=== PATIENT | male | born 1980 | race Caucasian/White ===

== ENCOUNTER 2017-01-21 10:58 | Outpatient (CLI) | payer OTHER ==
--- NOTE | 2017-01-21 13:36 | XRAY Report ---
COMPLETE CERVICAL SPINE: 01/21/2017 CLINICAL INDICATION: Neck pain. FINDINGS: AP, lateral, oblique, and odontoid views of the cervical spine demonstrate normal height a nd alignment of the vertebral bodies. The disk spaces are preserved. No osseous neural foraminal narr owing is appreciated. The prevertebral soft tissues are unremarkable. IMPRESSION: NORMAL CERVICAL SPINE. JOB #: [id number] EXT JOB #:[id number]
== END 2017-01-21 10:59 | disposition home or self-care (01) ==
LOC: DI.S 10:58
PROVIDERS: ATTEND Nurse Practitioner Family
DX: M54.2 Cervicalgia (principal)
CPT/HCPCS: 72050

== ENCOUNTER 2017-06-22 08:00 | Outpatient (CLI) | payer MEDICAID, OTHER ==
[2017-06-22 17:52] LABS: BASOPHILS % (AUTO) 0.6 %; EOSINOPHILS # (AUTO) 0.1 10^3/uL (0.0-0.7); EOSINOPHILS % (AUTO) 1.7 %; HGB - HEMOGLOBIN 16.3 g/dL (14.0-18.0); LYMPHOCYTES # (AUTO) 2.9 10^3/uL (1.5-3.5); LYMPHOCYTES % (AUTO) 47.4 %; MEAN CORPUSCULAR HGB CONC 33.9 g/dL (32.0-36.0); MEAN CORPUSCULAR VOLUME 94.5 fL (80.0-94.0); MEAN PLATELET VOLUME 8.4 fL (7.4-11.4); MONOCYTES # (AUTO) 0.7 10^3/uL (0.0-1.0); NEUTROPHILS # (AUTO) 2.4 10^3/uL (1.5-6.6); NEUTROPHILS % (AUTO) 39.3 %; PLT - PLATELET COUNT 233 10^3/uL (130-450); RED BLOOD COUNT 5.08 10^6/uL (4.70-6.10); RED CELL DISTRIBUTION WIDTH 13.3 % (12.0-15.0); WHITE BLOOD COUNT 6.2 x10^3/uL (4.8-10.8)
[2017-06-22 18:01] LABS: ALBUMIN 4.4 g/dL (3.2-5.5); ALBUMIN/GLOBULIN RATIO 1.5 (1.0-2.2); ALKALINE PHOSPHATASE 64 IU/L (42-121); ALT ALANINE AMINOTRANSFERASE 34 IU/L (10-60); AST ASPARTATE AMINOTRANSFERASE 27 IU/L (10-42); BILIRUBIN,TOTAL 0.4 mg/dL (0.2-1.0); BUN - BLOOD UREA NITROGEN 9 mg/dL (6-20); CALCIUM 8.9 mg/dL (8.5-10.3); CARBON DIOXIDE - CO2 27 mmol/L (21-32); CHLORIDE 100 mmol/L (101-111); GFR - MDRD 85 (>89); GLUCOSE 66 mg/dL (70-100); SODIUM 135 mmol/L (135-145); TOTAL PROTEIN 7.4 g/dL (6.7-8.2)
== END 2017-06-22 23:59 ==
LOC: LAB.S 08:00
PROVIDERS: ATTEND Nurse Practitioner Family
DX: F10.10 Alcohol abuse, uncomplicated (principal); F25.0 Schizoaffective disorder, bipolar type; Z79.899 Other long term (current) drug therapy; R03.0 Elevated blood-pressure reading, without diagnosis of hypertension
CPT/HCPCS: 36415; 80053; 84443; 85025

== ENCOUNTER 2017-11-16 18:40 | Emergency (ER) | payer MEDICAID ==
[2017-11-16 19:09] VITALS: BP 125/87
--- NOTE | 2017-11-16 20:09 | ED Physician Documentation ---
History of Present Illness - Stated complaint Stated Complaint: MHE - Chief complaint Chief Complaint: MHE - History obtained from History obtained from: Patient - History of Present Illness Timing: Chronic - Additonal information Additional information: Patient is a 37 year old male presenting to the emergency department for a "check up". Patient states that he he hurt his feet as a kid playing sports. patient states that he is tired of walking. Patient admitted to smoking crystal meth in triage but denied it to me. Patient is awake, alert and oriented and in no distress. Patient denies suicidal or homicidal ideation. Review of Systems Ten Systems: 10 systems reviewed and negative Constitutional: denies: Fever, Chills Musculoskeletal: reports: Extremity pain, Joint pain Neurologic: denies: Headache, Head injury, LOC Psychiatric: denies: Suicidal, Homicidal PD PAST MEDICAL HISTORY - Past Medical History Past Medical History: Yes Psych: Bipolar disorder, Schizophrenia - Past Surgical History Past Surgical History: No - Present Medications Home Medications: Ambulatory Orders Medication Instructions Recorded Confirmed No Known Home Medications 01/05/17 01/05/17 - Allergies Allergies/Adverse Reactions: Allergies Allergy/AdvReac Type Severity Reaction Status Date / Time No Known Drug Allergies Allergy Verified 11/16/17 19:09 - Social History Does the pt smoke?: No Smoking Status: Current every day smoker Does the pt drink ETOH?: Yes Does the pt have substance abuse?: Yes Substance Use and Type: Marijuana, Meth - Immunizations Immunizations are current?: No - POLST Patient has POLST: No PD ED PE NORMAL - Vitals Vital signs reviewed: Yes - General General: Alert and oriented X 3, No acute distress - HEENT HEENT: Atraumatic - Cardiac Cardiac: RRR - Respiratory Respiratory: No respiratory distress - Derm Derm: Normal color - Neuro Neuro: Alert and oriented X 3, No motor deficit, Normal speech Eye Opening: Spontaneous Results - Vitals Vitals: Vital Signs - 24 hr 11/16/17 18:57 Temperature 36.7 C Heart Rate 106 H Respiratory 16 Rate Blood Pressure 125/87 H O2 Saturation 99 Oxygen O2 Source Room air PD MEDICAL DECISION MAKING - ED course Complexity details: reviewed old records, reviewed results, re-evaluated patient, considered differential, d/w patient ED course: Patient was seen and examined at bedside. Patient was in no distress and was asking for food. Patient had no significant injuries. no imaging was indicated at this time. Patient was awake, alert and oriented and was not suicidal or homicidal. patient required no further work up and was stable for discharge with outpatient follow up. - Sepsis Event Vital Signs: Vital Signs - 24 hr 11/16/17 18:57 Temperature 36.7 C Heart Rate 106 H Respiratory 16 Rate Blood Pressure 125/87 H O2 Saturation 99 Oxygen O2 Source Room air Departure - Departure Disposition: 01 Home, Self Care Clinical Impression: Foot pain Condition: Stable Instructions: ED RICE Follow-Up: primary,care provider [Other] - As Needed Comments: You should try to elevate your feet and take motrin or tylenol as needed for pain. you should follow up with your doctor if your symptoms persist. you may return to the emergency department for new, worsening or uncontrollable symptoms.
== END 2017-11-16 20:22 | disposition home or self-care (01) ==
LOC: ED 18:40
DX: M79.673 Pain in unspecified foot (principal); F17.200 Nicotine dependence, unspecified, uncomplicated
CPT/HCPCS: 99282; 99283

== ENCOUNTER 2017-11-17 00:52 | Outpatient (CLI) | payer MEDICAID | END 2017-11-17 00:53 | disposition critical access hospital (66) | LOC: EMS 00:52 | PROVIDERS: ATTEND Surgery | DX: M54.9 Dorsalgia, unspecified (principal) | CPT/HCPCS: A0425; A0429; A0999 ==

== ENCOUNTER 2017-11-17 01:08 | Emergency (ER) | payer MEDICAID ==
[2017-11-17] MEDS ORDERED: IBUPROFEN 600 MG TABLET PO STA (01:13)
--- NOTE | 2017-11-17 01:13 | ED Physician Documentation ---
PD HPI BACK PAIN - Stated complaint Stated Complaint: LOW BACK PX - Chief complaint Chief Complaint: Back Pain - History obtained from History obtained from: Patient, EMS - History of Present Illness Timing - onset: Today Timing - details: Still present, Intermittant Location: Lower Quality: Pain Similar symptoms before: No diagnosis Recently seen: Emergency Dept - Additional information Additional information: Patient is a 37 year old male brought in by ems for back pain. patient was in the emergency department earlier after smoking either meth or pcp reporting foot pain that he had as a child. patient was discharged. This evening patient was acting odd at [facility] so police were called. patient asked police to take him down to [place] (south of the hospital, patient was [place] of the hospital and [place]). police refused then the patient proceeded to request transfer to the hospital for non traumatic back pain that has been going on for a few years. Review of Systems Ten Systems: 10 systems reviewed and negative Musculoskeletal: reports: Back pain, Extremity pain PD PAST MEDICAL HISTORY - Past Medical History Psych: Bipolar disorder, Schizophrenia - Past Surgical History Past Surgical History: No - Present Medications Home Medications: Ambulatory Orders Medication Instructions Recorded Confirmed No Known Home Medications 01/05/17 01/05/17 - Allergies Allergies/Adverse Reactions: Allergies Allergy/AdvReac Type Severity Reaction Status Date / Time No Known Drug Allergies Allergy Verified 11/17/17 01:13 - Social History Does the pt smoke?: No Smoking Status: Current every day smoker Does the pt drink ETOH?: Yes Does the pt have substance abuse?: Yes - Immunizations Immunizations are current?: No - POLST Patient has POLST: No PD ED PE NORMAL - Vitals Vital signs reviewed: Yes - General General: Alert and oriented X 3, No acute distress, Well developed/nourished - HEENT HEENT: Atraumatic - Cardiac Cardiac: RRR - Respiratory Respiratory: No respiratory distress - Derm Derm: No rash - Neuro Neuro: Alert and oriented X 3, No motor deficit Eye Opening: Spontaneous Results - Vitals Vitals: Vital Signs - 24 hr 11/17/17 01:11 Temperature 36.6 C Heart Rate 60 Respiratory 12 Rate Blood Pressure 132/93 H O2 Saturation 98 Oxygen O2 Source Room air PD MEDICAL DECISION MAKING - ED course Complexity details: reviewed old records, considered differential, d/w patient ED course: Patient was seen and examined at bedside. patient was walking normally a few hours ago while in the ER as well as at [facility]. Patient required no emergent i maging at this time. patient was treated with ibuprofen and stable for discharge with outpatient follow up. - Sepsis Event Vital Signs: Vital Signs - 24 hr 11/17/17 01:11 Temperature 36.6 C Heart Rate 60 Respiratory 12 Rate Blood Pressure 132/93 H O2 Saturation 98 Oxygen O2 Source Room air Departure - Departure Disposition: 01 Home, Self Care Clinical Impression: Low back pain Condition: Good Instructions: ED Back Care Tips Follow-Up: primary,care provider [Other] - As Needed Comments: You should take motrin or tylenol for your pain. you can also try applying ice or heat for pain control. You may return to the emergency department at any time for new, worsening or uncontrollable symptoms.
[2017-11-17 01:16] VITALS: BP 132/93
== END 2017-11-17 02:01 | disposition home or self-care (01) ==
LOC: EDUNIT# → ED 01:08
DX: M54.5 Low back pain (principal); F31.9 Bipolar disorder, unspecified; F20.9 Schizophrenia, unspecified; F17.200 Nicotine dependence, unspecified, uncomplicated
CPT/HCPCS: 99282; 99283; A9270

== ENCOUNTER 2017-11-18 13:13 | Emergency (ER) | payer MEDICAID ==
[2017-11-18 14:27] LABS: BASOPHILS % (AUTO) 0.7 %; EOSINOPHILS # (AUTO) 0.1 10^3/uL (0.0-0.7); HGB - HEMOGLOBIN 14.7 g/dL (14.0-18.0); LYMPHOCYTES # (AUTO) 2.6 10^3/uL (1.5-3.5); LYMPHOCYTES % (AUTO) 38.5 %; MEAN CORPUSCULAR HGB CONC 35.5 g/dL (32.0-36.0); MEAN PLATELET VOLUME 7.6 fL (7.4-11.4); MONOCYTES # (AUTO) 0.6 10^3/uL (0.0-1.0); MONOCYTES % (AUTO) 8.8 %; NEUTROPHILS # (AUTO) 3.4 10^3/uL (1.5-6.6); PLT - PLATELET COUNT 194 10^3/uL (130-450); RED BLOOD COUNT 4.46 10^6/uL (4.70-6.10); RED CELL DISTRIBUTION WIDTH 12.6 % (12.0-15.0); WHITE BLOOD COUNT 6.7 x10^3/uL (4.8-10.8)
[2017-11-18 14:42] LABS: ALBUMIN/GLOBULIN RATIO 1.4 (1.0-2.2); ALKALINE PHOSPHATASE 70 IU/L (42-121); ALT ALANINE AMINOTRANSFERASE 32 IU/L (10-60); AST ASPARTATE AMINOTRANSFERASE 31 IU/L (10-42); BILIRUBIN,TOTAL 0.5 mg/dL (0.2-1.0); BUN - BLOOD UREA NITROGEN 15 mg/dL (6-20); CALCIUM 8.9 mg/dL (8.5-10.3); CARBON DIOXIDE - CO2 24 mmol/L (21-32); CHLORIDE 104 mmol/L (101-111); CREATININE 0.8 mg/dL (0.6-1.2); GFR - MDRD 109 (>89); GLUCOSE 128 mg/dL (70-100); LIPASE 42 U/L (22-51); SODIUM 137 mmol/L (135-145); TOTAL PROTEIN 6.8 g/dL (6.7-8.2)
[2017-11-18] MEDS ORDERED: SODIUM CHLORIDE 0.9% 2,000 ML IV ONE (14:46)
--- NOTE | 2017-11-18 14:50 | ED Physician Documentation ---
History of Present Illness - Stated complaint Stated Complaint: HIGH BP - Chief complaint Chief Complaint: General - Additonal information Additional information: 37-year-old male presents the emergency department for evaluation. Upon enteri ng the room the patient is not making a tremendous amount of sense. The patient is babbling and reporting needing to walk. The patient is unclear as to While he is here. The patient reports excessive drug use and being homeless and walking. The history is significantly limited secondary to the patient's state. The patient does have a history of psychological issues and is unclear as to whether or not he has been taking his medications Review of Systems Unable to obtain: Confused, Intoxicated, Uncooperative Constitutional: reports: Fatigue Neurologic: reports: Confused Psychiatric: reports: Delusions PD PAST MEDICAL HISTORY - Past Medical History Cardiovascular: None Respiratory: None Neuro: None Endocrine/Autoimmune: None GI: None : None HEENT: None Psych: Bipolar disorder, Schizophrenia Musculoskeletal: Chronic back pain Derm: None - Past Surgical History Past Surgical History: No - Present Medications Home Medications: Ambulatory Orders Medication Instructions Recorded Confirmed No Known Home Medications 01/05/17 01/05/17 - Allergies Allergies/Adverse Reactions: Allergies Allergy/AdvReac Type Severity Reaction Status Date / Time No Known Drug Allergies Allergy Verified 11/17/17 01:13 - Social History Does the pt smoke?: No Smoking Status: Current every day smoker Does the pt drink ETOH?: Yes Does the pt have substance abuse?: Yes - Immunizations Immunizations are current?: No - POLST Patient has POLST: No PD ED PE NORMAL - General General: Other (37-year-old male who appears to be in a poor state of health and appears acutely confused) - HEENT HEENT: Atraumatic, PERRL, EOMI, Moist mucous membranes - Neck Neck: No bony TTP - Cardiac Cardiac: Other (Tachycardia regular rate) - Respiratory Respiratory: No respiratory distress, Clear bilaterally - Derm Derm: Normal color - Extremities Extremities: No deformity, Normal ROM s pain - Neuro Neuro: Other (The patient's alert, moving all 4 extremities and ambulates. But the patient is confused and has difficulty providing much history and is uncooperative) PD ED PE EXPANDED - Psych Psych: Withdrawn, Poor eye contact, Delusions Results - Vitals Vitals: Vital Signs - 24 hr 11/18/17 11/18/17 11/18/17 13:34 16:00 17:00 Temperature 36.5 C Heart Rate 138 H 94 87 Respiratory 20 15 14 Rate Blood Pressure 130/72 139/87 H 113/79 O2 Saturation 95 94 94 11/18/17 18:00 Temperature Heart Rate 89 Respiratory 13 Rate Blood Pressure 112/75 O2 Saturation 98 Oxygen O2 Source Room air - Labs Labs: Laboratory Tests 11/18/17 11/18/17 11/18/17 14:19 14:19 14:36 WBC 6.7 RBC 4.46 L Hgb 14.7 Hct 41.5 L MCV 93.0 MCH 33.0 H MCHC 35.5 RDW 12.6 Plt Count 194 MPV 7.6 Neut # (Auto) 3.4 Lymph # (Auto) 2.6 Mck[place]ley # (Auto) 0.6 Eos # (Auto) 0.1 Baso # (Auto) 0.0 Absolute Nucleated RBC 0.00 Nucleated RBC % 0.1 Sodium 137 Potassium 3.4 L Chloride 104 Carbon Dioxide 24 Anion Gap 9.0 BUN 15 Creatinine 0.8 Estimated GFR (MDRD) 109 Glucose 128 H Calcium 8.9 Total Bilirubin 0.5 AST 31 ALT 32 Alkaline Phosphatase 70 Total Creatine Kinase 664 H Total Protein 6.8 Albumin 4.0 Globulin 2.8 Albumin/Globulin Ratio 1.4 Lipase 42 Urine Color Urine Clarity Urine pH Ur Specific [place] Urine Protein Urine Glucose (UA) Urine Ketones Urine Occult Blood Urine Nitrite Urine Bilirubin Urine Urobilinogen Ur Leukocyte Esterase Ur Microscopic Review Last Dose Date Last Dose Time Salicylates < 6.0 Urine Opiates Screen Ur Oxycodone Screen Urine Methadone Screen Ur Propoxyphene Screen Acetaminophen < 10 L Ur Barbiturates Screen Ur Tricyclics Screen Ur Phencyclidine Scrn Ur Amphetamine Screen U Methamphetamines Scrn U Benzodiazepines Scrn [place] Urine Cocaine Screen U Cannabinoids Screen Ethyl Alcohol < 5.0 11/18/17 11/18/17 15:15 15:42 WBC RBC Hgb Hct MCV MCH MCHC RDW Plt Count MPV Neut # (Auto) Lymph # (Auto) Mck[place] # (Auto) Eos # (Auto) Baso # (Auto) Absolute Nucleated RBC Nucleated RBC % Sodium Potassium Chloride Carbon Dioxide Anion Gap BUN Creatinine Estimated GFR (MDRD) Glucose Calcium Total Bilirubin AST ALT Alkaline Phosphatase Total Creatine Kinase Total Protein Albumin Globulin Albumin/Globulin Ratio Lipase Urine Color YELLOW Urine Clarity CLEAR Urine pH 6.0 Ur Specific [place] 1.010 Urine Protein NEGATIVE Urine Glucose (UA) NEGATIVE Urine Ketones NEGATIVE Urine Occult Blood NEGATIVE Urine Nitrite NEGATIVE Urine Bilirubin NEGATIVE Urine Urobilinogen 0.2 (NORMAL) Ur Leukocyte Esterase NEGATIVE Ur Microscopic Review NOT INDICATED Last Dose Date UNKNOWN Last Dose Time UNKNOWN Salicylates Urine Opiates Screen NEGATIVE Ur Oxycodone Screen NEGATIVE Urine Methadone Screen NEGATIVE Ur Propoxyphene Screen NEGATIVE Acetaminophen Ur Barbiturates Screen NEGATIVE Ur Tricyclics Screen POSITIVE H Ur Phencyclidine Scrn NEGATIVE Ur Amphetamine Screen NEGATIVE U Methamphetamines Scrn POSITIVE H U Benzodiazepines Scrn NEGATIVE [place] < 0.05 Urine Cocaine Screen NEGATIVE U Cannabinoids Screen NEGATIVE Ethyl Alcohol PD MEDICAL DECISION MAKING - ED course ED course: After observation in the emergency department the patient had a tele-psych evaluation. After their evaluation they recommended placement into inpatient management. I discussed this with the patient and he became very agitated and enraged. The police were called and when the police arrived the patient threatened to kill the police and was making very violent threats and appeared to be a danger to staff and himself. The patient was placed in four-point restraints to help protect him and staff. The [facility] was called since the patient is not voluntary for treatment 23:00 PM The patient's care was turned over to Dr. Hightower for final disposition - Sepsis Event Vital Signs: Vital Signs - 24 hr 11/18/17 11/18/17 11/18/17 13:34 16:00 17:00 Temperature 36.5 C Heart Rate 138 H 94 87 Respiratory 20 15 14 Rate Blood Pressure 130/72 139/87 H 113/79 O2 Saturation 95 94 94 11/18/17 18:00 Temperature Heart Rate 89 Respiratory 13 Rate Blood Pressure 112/75 O2 Saturation 98 Oxygen O2 Source Room air Departure - Departure Clinical Impression: Acute psychosis, Polysubstance abuse
[2017-11-18 15:03] LABS: CK- CREATINE KINASE 664 IU/L (22-269); SALICYLATE < 6.0 mg/dL
[2017-11-18 15:11] LABS: ACETAMINOPHEN < 10 ug/mL (10-30)
--- NOTE | 2017-11-18 15:17 | CT Report ---
Reason: AMS Procedure Date: 11/18/2017 Accession Number: [id number] / [id number] Procedure: CT - Head W/O CPT Code: FULL RESULT: EXAM: CT HEAD EXAM DATE: 11/18/2017 03:06 PM. CLINICAL HISTORY: Confusion COMPARISON: None. TECHNIQUE: Multiaxial CT images were obtained from the foramen magnum to the vertex. Reformats: Sagittal and coronal. IV contrast: None. In accordance with CT protocol optimization, one or more of the following dose reduction techniques were utilized for this exam: automated exposure control, adjustment of mA and/or KV based on patient size, or use of iterative reconstructive technique. FINDINGS: Parenchyma: No intraparenchymal hemorrhage. No evidence of mass, midline shift, or CT findings of infarction. Reynolds-white differentiation is distinct. Extraaxial Spaces: Normal for age. No subdural or epidural collections identified. Ventricles: Normal in size and position. Sinuses and Orbits: Imaged paranasal sinuses, orbits, and mastoids show no significant abnormality. Bones: No evidence of fracture or calvarial defect. Other: None. IMPRESSION: No acute intracranial CT abnormality. RADIA
[2017-11-18 15:31] LABS: MUDS CUTOFF CONCENTRATIONS CUTOFF CONC BELOW:
[2017-11-18 15:47] LABS: AMPHETAMINE SCREEN,URINE NEGATIVE (NEGATIVE); BENZODIAZEPINES SCREEN, URINE NEGATIVE (NEGATIVE); COCAINE SCREEN URINE NEGATIVE (NEGATIVE); METHADONE SCREEN, URINE NEGATIVE (NEGATIVE); METHAMPHETAMINES SCREEN, URINE POSITIVE (NEGATIVE); OPIATE SCREEN, URINE NEGATIVE (NEGATIVE); OXYCODONE SCREEN, URINE NEGATIVE (NEGATIVE); PROPOXYPHENE SCREEN, URINE NEGATIVE (NEGATIVE); TRICYCLIC ANTIDEPRESSANT,URINE POSITIVE (NEGATIVE)
[2017-11-18 16:05] LABS: BILIRUBIN,URINE NEGATIVE (NEGATIVE); GLUCOSE, URINE (UA) NEGATIVE (NEGATIVE); KETONES,URINE (UA) NEGATIVE (NEGATIVE); LEUKOCYTE ESTERASE, URINE NEGATIVE (NEGATIVE); NITRITE,URINE NEGATIVE (NEGATIVE); OCCULT BLOOD,URINE NEGATIVE (NEGATIVE); PROTEIN,URINE NEGATIVE (NEGATIVE); UROBILINOGEN,URINE 0.2 (NORMAL) E.U./dL (NORMAL)
[2017-11-18 16:07] LABS: CLARITY,URINE CLEAR (CLEAR)
[2017-11-18 16:34] LABS: LITHIUM < 0.05 mmol/L
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
[2017-11-18] MEDS ORDERED: LORazepam 2 MG/ML VIAL IM STA (20:26)
[2017-11-18] MEDS ORDERED: HALOPERIDOL 5 MG/ML VIAL IM STA (20:26)
[2017-11-18] MEDS ORDERED: diphenhydrAMINE INJ 50 MG/ML VIAL IM STA (20:26)
[2017-11-19] MEDS ORDERED: OLANZapine ODT 5 MG TABLET TL STA ×2 (00:34→00:36)
[2017-11-19 03:04] VITALS: BP 133/87
--- NOTE | 2017-12-17 12:36 | ED Physician Documentation ---
ED Addendum - Addendum Addendum: 12/17/17 12:35 DISPOSITION : Transfer acute psychiatric hospital
== END 2017-11-19 03:15 ==
LOC: ED 13:13
DX: F25.0 Schizoaffective disorder, bipolar type (principal); F23 Brief psychotic disorder; F15.10 Other stimulant abuse, uncomplicated; F17.200 Nicotine dependence, unspecified, uncomplicated; Z59.0 Homelessness
CPT/HCPCS: 36415; 70450; 80053; 80178; 80306; 80307; 80320; 80329; 81003; 82550; 83690; 85025; 93005; 96360; 96361; 99284; A9270; G0426; Q3014; 81001; 99285

== ENCOUNTER 2018-01-11 14:31 | Emergency (ER) | payer SELFPAY ==
[2018-01-11 14:44] VITALS: BP 136/107
--- NOTE | 2018-01-11 15:44 | ED Physician Documentation ---
History of Present Illness - Stated complaint Stated Complaint: MED REFILL - Chief complaint Chief Complaint: General - Additonal information Additional information: hx from pt 37 male needs his zyprexa refilled - he left the bottle in his trailer he has PMD appt coming up thinks a week will get him through doing OK mentally Review of Systems Constitutional: denies: Fever, Chills Respiratory: denies: Cough GI: denies: Vomiting, Diarrhea PD PAST MEDICAL HISTORY - Past Medical History Cardiovascular: None Respiratory: None Neuro: None Endocrine/Autoimmune: None GI: None : None HEENT: None Psych: Bipolar disorder, Schizophrenia Musculoskeletal: Chronic back pain Derm: None - Past Surgical History Past Surgical History: No - Present Medications Home Medications: Ambulatory Orders Medication Instructions Recorded Confirmed Olanzapine [Zyprexa] 10 mg PO DAILY #7 tablet 01/11/18 - Allergies Allergies/Adverse Reactions: Allergies Allergy/AdvReac Type Severity Reaction Status Date / Time No Known Drug Allergies Allergy Verified 01/11/18 14:44 - Social History Does the pt smoke?: No Smoking Status: Current every day smoker Does the pt drink ETOH?: Yes Does the pt have substance abuse?: Yes - Immunizations Immunizations are current?: No - POLST Patient has POLST: No Results - Vitals Vitals: Vital Signs - 24 hr 01/11/18 14:39 Temperature 36.8 C Heart Rate 90 Respiratory 20 Rate Blood Pressure 136/107 H O2 Saturation 98 Oxygen O2 Source Room air Departure - Departure Disposition: 01 Home, Self Care Clinical Impression: Medicine refill Condition: Good Prescriptions: Olanzapine [Zyprexa] 10 mg PO DAILY #7 tablet Comments: You were not completely certain of the name of your medication but this is what you were on the last time I saw you. Please have your pharmacist confirm this is your correct medication and dose when you go to fill the prescription
== END 2018-01-11 16:06 | disposition home or self-care (01) ==
LOC: ED 14:31
DX: Z76.0 Encounter for issue of repeat prescription (principal); F17.200 Nicotine dependence, unspecified, uncomplicated
CPT/HCPCS: 99282; 99283

== ENCOUNTER 2018-02-11 11:23 | Outpatient (CLI) | payer OTHER, MEDICAID ==
--- NOTE | 2018-02-11 14:21 | XRAY Report ---
Reason: L-SPINE/LUMBAR PAIN, RT SHOULDER PAIN Procedure Date: 02/11/2018 Accession Number: [id number] / [id number] Procedure: XR - Lumbar Spine 2 View CPT Code: FULL RESULT: EXAM: LUMBOSACRAL SPINE RADIOGRAPHY EXAM DATE: 02/11/2018 11:50 AM. CLINICAL HISTORY: Lumbar spine/lumbar pain, right shoulder pain. COMPARISONS: None. TECHNIQUE: 3 views. FINDINGS: Alignment: Normal. No spondylolisthesis or scoliosis. Bones: Five [id number] lumbar vertebral bodies are present. No fractures or bone lesions. Disks: Normal. Disk heights are maintained. Facets: Mild lower lumbar spine facet arthropathy. Sacroiliac Joints: Unremarkable. Soft Tissues: Normal. The visualized bowel gas pattern is normal. IMPRESSION: No significant degenerative changes are detected. RAD[facility]
--- NOTE | 2018-02-11 14:30 | XRAY Report ---
Reason: L-SPINE/LUMBAR PAIN, RT SHOULDER PAIN Procedure Date: 02/11/2018 Accession Number: [id number] / [id number] Procedure: XR - Shoulder 3 View RT CPT Code: FULL RESULT: EXAM: RIGHT SHOULDER RADIOGRAPHY EXAM DATE: 02/11/2018 11:50 AM. CLINICAL HISTORY: Lumbar spine/lumbar pain, right shoulder pain. COMPARISON: None. TECHNIQUE: 3 views. FINDINGS: Bones: Normal. No fracture or bone lesion. Joints: The glenohumeral and acromioclavicular joints are normal. Soft tissues: The visualized hemithorax is unremarkable. No soft tissue swelling. IMPRESSION: Normal shoulder radiography. RADIA
== END 2018-02-11 11:24 | disposition home or self-care (01) ==
LOC: DI 11:23
DX: M54.5 Low back pain (principal); M25.511 Pain in right shoulder
CPT/HCPCS: 72100